=== PATIENT | female | born 1985 | race Caucasian/White ===

== ENCOUNTER 2024-12-01 03:17 | Emergency (ER) | payer OTHER, SELFPAY ==
[2024-12-01] VITALS (10 sets, daily range): BP systolic 112–145; BP diastolic 85–93; PULSE 90–99; TEMP 36.7; O2SAT 95–99; BMI 28.9
--- NOTE | 2024-12-01 03:34 | ECG_ITS ---
[facility] Test Date: 2024-12-01 Pat Name: Ruthy Fernandez Department: Room: - Gender: Female Forepart Rasper: : 1985 Requested By: Sebas Galvan Order Number: [id number] Ayla MD: HERNANDEZ HCEN M.D. Measurements Intervals [place] Rate: 89 P: 57 ME: 128 QRS: 56 QRSD: 94 T: 53 QT: 374 QTc: 421 Interpretive Statements 1100 Sinus rhythm 9110 normal ECG Compared to ECG 09/20/2022 21:05:45 No significant changes Electronically Signed On 12-01-2024 10:43:58 EDT by HERNANDEZ CHEN M.D.
--- NOTE | 2024-12-01 04:14 | ED_ITS ---
HPI - Chest Pain General Chief Complaint: Chest Pain Stated Complaint: CHEST PAINS Time Seen by Provider: 12/01/24 03:32 Source: patient History of Present Illness HPI narrative: cc - chest heaviness Yesterday the patient developed heaviness in the chest. She never had any palpitations and the heaviness did not involve any other parts of the body. She feels like the sensation is worse with deep breathing. She denies any fall or injury to the chest or torso. No history of asthma or COPD. No cardiac history. She is on medication for high blood pressure -she cannot recall the names but says 1 is HCTZ. No fever or chills. No cough. No sputum production. No GI or symptoms associated with this acute chest heaviness -she does have history of reflux disease and some abnormal digestion that will cause intermittent nausea and/or cramping Related Data Home Medications ?Medication ?Instructions ?Recorded ?Confirmed cyclobenzaprine 10 mg tablet 10 mg PO TID PRN muscle s pasm 12/01/24 12/01/24 dicyclomine 10 mg capsule 10 mg PO BID PRN abdominal p ain 12/01/24 12/01/24 naproxen 500 mg tablet 500 mg PO BID 12/01/2412/01 omeprazole 40 mg capsule,delayed 40 mg PO BID 12/01/24 12/01/24 release phentermine 37.5 mg tablet 37.5 mg PO DAILY 12/01/24 0 12/01/24 sumatriptan 85 mg-naproxen 500 mg 1 tab PO DAILY PRN m igraine 12/01/24 12/01/24 tablet headache Previous Rx's ?Medication ?Instructions ?Recorded prednisone 20 mg tablet 40 mg (2 x 20 mg) PO DAILY 3 days 12/01/24 #6 tabs Allergies Allergy/AdvReac Type Severity Reaction Status Date / Time No Known Drug Allergies Allergy Verified 12/01/24 03:35 PFSH PFSH Social History Little interest or pleasure in doing things: not at all Feeling down, depressed, or hopeless: not at all Exam Narrative Exam Narrative: Nurses notes and vital signs reviewed and patient is not hypoxic. afebrile General: Well-appearing and in no apparent distress. Skin: Warm, dry, no pallor noted. Head: Normocephalic, atraumatic. Eye: Pupils are equal, round and EOMI. No scleral icterus. Ears, Nose, Mouth, and Throat: Oral mucosa is moist Cardiovascular: Regular Rate and Rhythm without murmur, gallop or rub. Respiratory: No accessory muscle use or respiratory distress. Lungs are clear to auscultation, no wheezing, rales or rhonchi Chest Wall: no tenderness, crepitus or subcutaneous emphysema Musculoskeletal: normal ROM, no calf or popliteal tenderness, no lower extremity edema/swelling GI: Abdomen is soft, non-distended. Normal bowel sounds. No tenderness to palpation. No rebound, guarding, or rigidity noted. Neurological: A&O x4. No cranial nerve dysfunction observed. No truncal ataxia. Moves all extremities. Sensation intact. Psychiatric: Cooperative and interactive. Normal mood and affect. Constitutional Vital Signs, click to edit/add: Last Vital Signs Temp 98.0 F 12/01/24 03:30 Pulse 99 H 12/01/24 03:30 Resp 16 12/01/24 03:30 BP 145/93 H 12/01/24 03:30 Pulse Ox 98 12/01/24 03:30 Course Vital Signs Vital signs: Vital Signs Temperature 98.0 F 12/01/24 03:30 Pulse Rate 99 H 12/01/24 03:30 Respiratory Rate 16 12/01/24 03:30 Blood Pressure 145/93 H 12/01/24 03:30 Pulse Oximetry 98 12/01/24 03:30 Temperature 98.0 F 12/01/24 03:30 Pulse Rate 99 H 12/01/24 03:30 Respiratory Rate 16 12/01/24 03:30 Blood Pressure 145/93 H 12/01/24 03:30 Pulse Oximetry 98 12/01/24 03:30 MDM - Chest Pain MDM Narrative Medical decision making narrative: Patient was placed on teletypesetter monitor and EKG obtained. Portable chest x-ray obtained. EKG is normal and chest x-ray is negative. Patient was given reassurance. Her heart score is 2 Differential Diagnosis Differential diagnosis: Likely pneumothorax, atypical chest pain, st elevation myocardial infarction, costochondritis and chest pain Imaging Data Chest x-ray: My impression: NAD -no effusion, consolidation, mass or pneumothorax ECG Data Attestation: I personally reviewed and interpreted this ECG as follows: Interpretation: EKG interpretation: Emergency Department physician interpretation. Normal sinus rhythm at 89bpm. Normal axis, normal intervals and no ST segment elevation or depression. Normal EKG Heart Score History: Slightly/Non-Suspicious ECG: Normal Age: <45 years Risk Factors: No Risk Factors Discharge Plan Discharge Chief Complaint: Chest Pain Clinical Impression: Pleurisy, Chest pain Patient Disposition: Home, Self-Care Time of Disposition Decision: 04:19 Prescriptions / Home Meds: New prednisone 20 mg tablet 40 mg PO DAILY 3 Days Qty: 6 0RF No Action cyclobenzaprine 10 mg tablet 10 mg PO TID PRN (Reason: muscle spasm) dicyclomine 10 mg capsule 10 mg PO BID PRN (Reason: abdominal pain) naproxen 500 mg tablet 500 mg PO BID omeprazole 40 mg capsule,delayed release(DR/EC) 40 mg PO BID phentermine 37.5 mg tablet 37.5 mg PO DAILY sumatriptan-naproxen 85-500 mg tablet 1 tab PO DAILY PRN (Reason: migraine headache) Print Language: Luxembourgish Instructions: Pleurisy (ED) Referrals: LINDA ROMAN [Primary Care Provider, Family Practice] - 1 week
[2024-12-01] MEDS: PREDNISONE 20 MG TABLET 40 MG PO (04:43)
== END 2024-12-01 04:59 | disposition home or self-care (01) ==
PROVIDERS: Emergency Provider Emergency Medicine; PCP Family Medicine
DX: R09.1 Pleurisy (principal); R07.89 Other chest pain
CPT/HCPCS: 71045; 93005; 99284; J7512

== ENCOUNTER 2025-02-27 19:40 | Outpatient (REF) | payer OTHER, SELFPAY ==
--- OUTSIDE RECORDS SUMMARY | 2025-02-27 19:43 | XMS_ITS | Encounter Summary ---
Author Organization [facility] Address [address] [place] [address] Care Team Providers Care Oral And Maxillofacial Surgery Name Role Phone Juwan Black DO Primary Care Provider +1- [phone] Gissell Jaime PA-C Unavailable Unavailable Source Comments In the event this information is protected by the Federal Confidentiality of Alcohol and Drug AbusePatient Records regulations: The Federal rules restrict any use of the information to criminally investigate or prosecute any alcohol or drug abuse patient.[facility] Encounter Details Date Type Department Care Team (Late st Contact Info) Description 02/20/2022 Patient Msg Rheumatology [address] [place] [address] Ana Sawyer MD [address] [place] [address] Request an Appointment Social History Tobacco Use Types Packs/Day Years Used Date Smoking Tobacco: Every Day Cigarettes Smokeless Tobacco: Never PHQ-2 Answer Date Recorded PHQ-2 score 6 09/13/2019 Area Deprivation Index Answer Date Mike rded National Score (1-100), lower number is lower ri sk 79 12/08/2021 State Score (1-10), lower number is lower risk N ot on file 12/08/2021 Data from: https://www.neighborhoodatlas.medicine.[facility].edu/. Last address used for calculation [address] [facility] 12/08/2021 Comments No Sex and Gender Information Value Date Recorded Sex Assigned at Not on file Legal Sex Female 2:53 PM EDT Gender Identity Not on file Sexual Orientation Not on file COVID-19 Exposure Response Date Recorded In the last 10 days, have yo u been in contact with someone who was confirmed or suspected to have Coronavirus/COVID-19? No / Unsure 02/17/2022 7:39 AM EDT documented as of this encounter Plan of Treatment Not on file documented as of this encounter Visit Diagnoses Not on filedocumented in this encounter Care Teams Oral And Maxillofacial Surgery Relationship Specialty Start Date End Date Juwan Black DO [address] [facility] [address] [place] [address] PCP - General Family Medicine 09/27/16 Gissell Jaime PA-C [address] [facility] [address] [place] [address] Referring Team Neurology 09/26/21 documented as of this encounter
--- OUTSIDE RECORDS SUMMARY | 2025-02-27 19:43 | XMS_ITS | Clinical Summary ---
Author Organization [facility] Address [address] [place] [address] Care Team Providers Care Licensed Appraiser Name Role Phone Juwan Black Primary Care Provider +1- [phone] Gissell Jaime PA-C Unavailable Unavailable Allergies No known active allergies Medications SUMAtriptan (IMITREX) 100 mg tablet Take 100 mg by mouth as needed. Active traMADol (ULTRAM) 50 mg tablet Take 50 mg by mouth every 6 hours as needed. Active nicotine (NICODERM) 21 mg/24 hrIndications:Leihg nunez nicotine dependence without complication Apply 1 Patch as directed every 24 hours. 30 Patch 1 7 Active Additional Information Patient not taking.Reported on 09/13/2019 buPROPion (WELLBUTRIN) 100 mg tablet Take 100 mg by mouth twice daily. 0 Active promethazine (PHENERGAN) 12.5 mg tablet Take 12.5 mg by mouth every 6 hours as needed. 0 Active ibuprofen (MOTRIN) 600 mg tablet Take 600 mg by mouth every 6 hours as needed. Active ergocalciferol 50,000 unit capsule (VITAMIN D2, DRISDOL)Indicati ons:Vitamin D deficiency (take by mouth with food twice a week, ONE CAPSULE ON TUESDAY AND ONE ON TUESDAY) FOR A TOTAL OF 8 WEEKS. 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 Bilateral hand pain 02/04/2017 Chronic pain of both knees 02/04/2017 Chronic pain of both shoulders 02/04/2017 Social History Tobacco Use Types Packs/Day Years Used Date Smoking Tobacco: Every Day Cigarettes Smokeless Tobacco: Never Tobacco Cessation:Ready to Q uit: No; Counseling Given: Yes PHQ-2 Answer Date Recorded PHQ-2 score 6 09/13/2019 Area Deprivation Index Answer Date Mike rded National Score (1-100), lower number is lower ri sk 79 08/01/2022 State Score (1-10), lower number is lower risk N ot on file 08/01/2022 Data from: https://www.neighborhoodatlas.medicine.[facility].edu/. Last address used for calculation [address] 08/01/2022 Comments No Sex and Gender Information Value Date Recorded Sex Assigned at Not on file Legal Sex Female 2:53 PM EDT Gender Identity Not on file Sexual Orientation Not on file Last Filed Vital Signs Vital Sign Reading Time Taken Comments Blood Pressure 128/87 09/13/2019 11:03 AM EDT Pulse 95 09/13/2019 11:03 AM EDT Temperature - - Respiratory Rate - - Oxygen Saturation 98% 02/04/2017 12:49 PM EDT Inhaled Oxygen Concentration - - Weight 63 kg (139 lb) 09/13/2019 11:03 AM EDT Height 151.8 cm (4' 11.75 ) 02/04/2017 12:49 PM EDT Body Mass Index 27.37 02/04/2017 12:49 PM EDT Plan of Treatment Health Maintenance Due Date Last Done Comments Anxiety Screening 2002 Depression Screening 2002 HIV Screening 2002 Hepatitis C Screening 2002 Hepatitis B Vaccine (1 of 3 - 19+ 3-dose series) 04/03 Cervical Cancer Screening 2005 HPV Vaccine (1 - 3-dose SCDM series) 2011 Mammogram Screening 2024 Influenza Vaccine (#1) 2025 DTaP,Tdap,Td Vaccine (2 - Td or Tdap) 12/31/2027 Insurance MMO [employer] PPO [facility] MEDICAID Care Teams Licensed Appraiser Relationship Specialty Start Date End Date Juwan Black DO [address] [address] PCP - General Family Medicine 09/27/16 Gissell Jaime PA-C [address] [address] [place] Referring Team Neurology 09/26/21
--- OUTSIDE RECORDS SUMMARY | 2025-02-27 19:43 | XMS_ITS | Clinical Summary ---
Author Organization [facility] Address [address] [place] [address] Phone Care Team Providers Care Tree Trimming Line Technician Name Role Phone Unavailable Primary Care Provider Unavailabl e Social History Tobacco Use Types Packs/Day Years Used Date Smoking Tobacco: Never Assessed Comments Unknown Sex and Gender Information Value Date Recorded Sex Assigned at Not on file Legal Sex Female 7:13 AM EST Gender Identity Not on file Sexual Orientation Not on file Plan of Treatment Health Maintenance Due Date Last Done Comments HIV Screening 1985 Lipid Panel 1984 Yearly Adult Physical 1985 MMR Vaccines (1 of 1 - Stand kade series) 1985 Hepatitis C Screening 2002 Hepatitis B Vaccines (1 of 3 - 19+ 3-dose series) 2003 Cervical Cancer Screening 2005 HPV/Cotest 2005 Pap Smear 2005 DTaP/Tdap/Td Vaccines (1 - Tdap) 2006 HPV Vaccines (1 - 3-dose sta ndard series) 2011 COVID-19 Vaccine ( - 2023-2 5 season) 2024 Mammogram 2024 Influenza Vaccine (#1) 2025 Zoster Vaccines (1 of 2) 2034 HIB Vaccines Aged Out No longer eligi ble based on patient's age to complete this topic Hepatitis A Vaccines Aged Out No long er eligible based on patient's age to complete this topic IPV Vaccines Aged Out No longer eligi ble based on patient's age to complete this topic Meningococcal Vaccine Aged Out No ramesh yuni eligible based on patient's age to complete this topic Pneumococcal Vaccine: Pediat rics and At-Risk Adult Patients Aged Out No longer yamile gible based on patient's age to complete this topic Rotavirus Vaccines Aged Out No longer eligible based on patient's age to complete this topic
--- OUTSIDE RECORDS SUMMARY | 2025-02-27 19:43 | XMS_ITS | Encounter Summary ---
Author Organization [facility] Address [address] [place] [address] Care Team Providers Care Mold Unloader Name Role Phone Juwan Black DO Primary Care Provider +1- [phone] Gissell Jaime PA-C Unavailable Unavailable Source Comments In the event this information is protected by the Federal Confidentiality of Alcohol and Drug AbusePatient Records regulations: The Federal rules restrict any use of the information to criminally investigate or prosecute any alcohol or drug abuse patient.[facility] Encounter Details Date Type Department Care Team (Late st Contact Info) Description 01/21/2022 Patient Msg Neurology [address] [place] [address] Provider, [facility] Important Medication Instructions for Neuro Autonomic QSART 02/17 Social History Tobacco Use Types Packs/Day Years Used Date Smoking Tobacco: Every Day Cigarettes Smokeless Tobacco: Never PHQ-2 Answer Date Recorded PHQ-2 score 6 09/13/2019 Area Deprivation Index Answer Date Mike rded National Score (1-100), lower number is lower ri sk 79 12/08/2021 State Score (1-10), lower number is lower risk N ot on file 12/08/2021 Data from: https://www.neighborhoodatlas.medicine.[facility].edu/. Last address used for calculation [address] [facility] 12/08/2021 Comments No Sex and Gender Information Value Date Recorded Sex Assigned at Not on file Legal Sex Female 2:53 PM EDT Gender Identity Not on file Sexual Orientation Not on file COVID-19 Exposure Response Date Recorded In the last 10 days, have yo u been in contact with someone who was confirmed or suspected to have Coronavirus/COVID-19? No / Unsure 01/05/2022 2:09 PM EDT documented as of this encounter Plan of Treatment Not on file documented as of this encounter Visit Diagnoses Not on filedocumented in this encounter Care Teams Mold Unloader Relationship Specialty Start Date End Date Juwan Black DO [address] [facility] [address] [place] [address] PCP - General Family Medicine 09/27/16 Gissell Jaime PA-C [address] [facility] [address] [place] [address] Referring Team Neurology 09/26/21 documented as of this encounter
--- OUTSIDE RECORDS SUMMARY | 2025-02-27 19:43 | XMS_ITS | Encounter Summary ---
Author Organization [facility] Address [address] [place] [address] Care Team Providers Care Telecommunications Administrator Name Role Phone Juwan Black DO Primary Care Provider +1- [phone] Gissell Jaime PA-C Unavailable Unavailable Source Comments In the event this information is protected by the Federal Confidentiality of Alcohol and Drug AbusePatient Records regulations: The Federal rules restrict any use of the information to criminally investigate or prosecute any alcohol or drug abuse patient.[facility] Encounter Details Date Type Department Care Team (Late st Contact Info) Description 12/01/2021 Patient Msg Neurology [address] [place] [address] Provider, [facility] Important Medication Instructions for Neuro Autonomic QSART Social History Tobacco Use Types Packs/Day Years Used Date Smoking Tobacco: Every Day Cigarettes Smokeless Tobacco: Never PHQ-2 Answer Date Recorded PHQ-2 score 6 09/13/2019 Area Deprivation Index Answer Date Mike rded National Score (1-100), lower number is lower ri sk Not on file 06/12/2020 State Score (1-10), lower number is lower risk N ot on file 06/12/2020 Data from: https://www.neighborhoodatlas.medicine.[facility].edu/. Last address used for calculation Not on file 06/12/2020 Comments No Sex and Gender Information Value Date Recorded Sex Assigned at Not on file Legal Sex Female 2:53 PM EDT Gender Identity Not on file Sexual Orientation Not on file COVID-19 Exposure Response Date Recorded In the last 10 days, have yo u been in contact with someone who was confirmed or suspected to have Coronavirus/COVID-19? Unable to assess 12/01/2021 3:14 PM EDT documented as of this encounter Plan of Treatment Not on file documented as of this encounter Visit Diagnoses Not on filedocumented in this encounter Care Teams Telecommunications Administrator Relationship Specialty Start Date End Date Juwan Black DO [address] [facility] [address] [place] [address] PCP - General Family Medicine 09/27/16 Gissell Jaime PA-C [address] [facility] [address] [place] [address] Referring Team Neurology 09/26/21 documented as of this encounter
--- OUTSIDE RECORDS SUMMARY | 2025-02-27 19:43 | XMS_ITS | Encounter Summary ---
Author Organization [facility] Address [address] [place] [address] Phone Care Team Providers Care License Issuer Name Role Phone Unavailable Primary Care Provider Unavailabl e Encounter Details Date Type Department Care Team (Late st Contact Info) Description 03/06/2023 Patient Risk Score ACO Care Management [address] [place] [address] Social History Tobacco Use Types Packs/Day Years Used Date Smoking Tobacco: Never Assessed Comments Unknown Sex and Gender Information Value Date Recorded Sex Assigned at Not on file Legal Sex Female 7:13 AM EST Gender Identity Not on file Sexual Orientation Not on file documented as of this encounter Plan of Treatment Not on file documented as of this encounter Visit Diagnoses Not on filedocumented in this encounter
--- OUTSIDE RECORDS SUMMARY | 2025-02-27 19:43 | XMS_ITS | Encounter Summary ---
Author Organization [facility] Address [address] [place] [address] Phone Care Team Providers Care Postie Name Role Phone Unavailable Primary Care Provider Unavailabl e Encounter Details Date Type Department Care Team (Late st Contact Info) Description 02/03/2023 Patient Risk Score ACO Care Management [address] [place] [address] Social History Tobacco Use Types [...]
--- OUTSIDE RECORDS SUMMARY | 2025-02-27 19:43 | XMS_ITS | Encounter Summary ---
Author Organization [facility] Address [address] [place] [address] Care Team Providers Care Inspector Final Assembly Mechanical Name Role Phone Juwan Black DO Primary Care Provider +1- [phone] Gissell Jaime PA-C Unavailable Unavailable Source Comments In the event this information is protected by the Federal Confidentiality of Alcohol and Drug AbusePatient Records regulations: The Federal rules restrict any use of the information to criminally investigate or prosecute any alcohol or drug abuse patient.[facility] Encounter Details Date Type Department Care Team (Late st Contact Info) Description 12/09/2021 Patient Msg Neurology [address] [place] [address] Provider, [facility] Important Medication Instructions for Neuro Autonomic QSART 01/06 Social History Tobacco Use Types Packs/Day Years Used Date Smoking Tobacco: Every Day Cigarettes Smokeless Tobacco: Never PHQ-2 Answer Date Recorded PHQ-2 score 6 09/13/2019 Area Deprivation Index Answer Date Mike rded National Score (1-100), lower number is lower ri sk 79 12/08/2021 State Score (1-10), lower number is lower risk N ot on file 12/08/2021 Data from: https://www.neighborhoodatlas.medicine.[facility].edu/. Last address used for calculation [address] [facility] 12/08/2021 Comments No Sex and [...] on filedocumented in this encounter Care Teams Inspector Final Assembly Mechanical Relationship Specialty Start Date End Date Juwan Black DO [address] [facility] [address] [place] [address] PCP - General Family Medicine 09/27/16 Gissell Jaime PA-C [address] [address] Referring Team Neurology 09/26/21 documented as of this encounter
--- OUTSIDE RECORDS SUMMARY | 2025-02-27 19:43 | XMS_ITS | Encounter Summary ---
Author Organization [facility] Address [address] [place] [address] Care Team Providers Care Parts Room Associate Name Role Phone Juwan Black DO Primary Care Provider +1- [phone] Gissell Jaime PA-C Unavailable Unavailable Source Comments In the event this information is protected by the Federal Confidentiality of Alcohol and Drug AbusePatient Records regulations: The Federal rules restrict any use of the information to criminally investigate or prosecute any alcohol or drug abuse patient.[facility] Encounter Details Date Type Department Care Team (Late st Contact Info) Description 09/17/2019 Patient Msg Rheumatology [address] [place] [address] Ana Sawyer MD [address] [place] [address] results Social History Tobacco Use Types Packs/Day Years Used Date Smoking Tobacco: Every Day Cigarettes Smokeless Tobacco: Never PHQ-2 Answer Date Recorded PHQ-2 score 6 09/13/2019 Comments No Sex and Gender Information Value Date Recorded Sex Assigned at Not on file Legal Sex Female 2:53 PM EDT Gender Identity Not on file Sexual Orientation Not on file documented as of this encounter Plan of Treatment Not on file documented as of this encounter Visit Diagnoses Not on filedocumented in this encounter Care Teams Parts Room Associate Relationship Specialty Start Date End Date Juwan Black DO [address] [facility] [address] [place] [address] PCP - General Family Medicine 09/27/16 Gissell Jaime PA-C [address] [address] Referring Team Neurology 09/26/21 documented as of this encounter
--- OUTSIDE RECORDS SUMMARY | 2025-02-27 19:43 | XMS_ITS | Encounter Summary ---
Author Organization [facility] Address [address] [place] [address] Phone Care Team Providers Care Nut Culler Name Role Phone Unavailable Primary Care Provider Unavailabl e Encounter Details Date Type Department Care Team (Late st Contact Info) Description 01/03/2023 Patient Risk Score ACO Care Management [address] [place] [address] Social History Tobacco Use Types [...]
[2025-03-07 10:08] LABS: Age Gdln ACOG Testing Note (.); IGP, Aptima HPV, rfx 16/18,45 Note (.)
== END 2025-02-27 19:41 | disposition home or self-care (01) ==
LOC: LAB 19:40
PROVIDERS: PCP Family Medicine; Visit Provider Obstetrics & Gynecology
DX: Z01.419 Encounter for gynecological examination (general) (routine) without abnormal findings (principal)
CPT/HCPCS: 87624; 88175